=== PATIENT | female | born 1970 | race Caucasian/White ===

== ENCOUNTER 2020-11-30 02:26 | Outpatient (CLI) | payer OTHER, SELFPAY ==
[2020-11-30 18:38] LABS: SARS-CoV-2 RNA PCR Negative
== END 2020-11-30 02:27 | disposition home or self-care (01) ==
LOC: ANHCOVIDDT 02:26
PROVIDERS: PCP Family Medicine; Visit Provider Internal Medicine Gastroenterology
DX: Z01.812 Encounter for preprocedural laboratory examination (principal); Z20.822 Contact with and (suspected) exposure to COVID-19
CPT/HCPCS: C9803; U0003; U0005

== ENCOUNTER 2020-12-03 01:15 | Day surgery (SDC) | payer OTHER, SELFPAY ==
[2020-11-23 13:19] VITALS: BMI 29.4
[2020-12-03 09:28] VITALS: BP 116/71; PULSE 64; RESP 16; TEMP 36.6; O2SAT 100; BMI 29.8
[2020-12-03] MEDS: LACTATED RINGERS 1,000 ML 150 ML IV CONT (09:38)
--- NOTE | 2020-12-03 10:03 | WPDANESEPPF ---
Anes - Initial Pre Proc Eval Procedure: Operation Date: 12/03/20 10:45 Proposed Procedures p Esophagogastroduodenoscopy - Dk Steen MD Date/Time: 12/03/20 10:03 Surgeon: Dk Steen MD Pre Op Diagnosis: Dysphagia Patient Data Age: 50 Gender: F Height: 5 ft 2 in Weight: 74 kg Last Vital Signs Temp 97.8 F 12/03/20 09:28 Pulse 64 12/03/20 09:28 Resp 16 12/03/20 09:28 BP 116/71 12/03/20 09:28 Pulse Ox 100 12/03/20 09:28 Allergies Allergy/AdvReac Type Severity Reaction Status Date / Time No Known Allergies Allergy Verified 12/03/20 09:27 Home Medications Medication Instructions Recorded Confirmed Type pantoprazole 40 mg tablet,delayed 40 mg PO QAM #30 tablet 10/27/20 11/23/20 Rx release hydroxyzine HCl 25 mg PO DAILY 11/23/20 11/23/20 History sertraline 50 mg tablet 50 mg PO DAILY 11/23/20 11/23/20 History propranolol 20 mg tablet 20 mg PO TID #90 tablet 11/24/20 Rx Patient hx anesthesia problems: none Family hx anesthesia problems: none PMFSH Past Medical History Medical History Melanoma Overweight (BMI 25.0-29.9) Sciatica Social History Social History (Updated 11/23/20 @ 07:54 by Paulette Haney) Social History: single Smoking status: Never smoker Second hand tobacco smoke exposure: No Alcohol intake: current Drinks per week: 2 Substance use: never Substance use type: does not use Living arrangements: with family Additional living arrangements comments: Pt lives with her boyfriend Additional occupation/education comments: Disability Gender identity (if verbalized by the patient): Female Spiritual care concerns: No Anes - Eval Final PreProcedure Day of Procedure 12/03/20 10:03 Patient weight: overweight Heart: regular rate and rhythm Lungs: clear to auscultation Airway: Mallampati scale class II Neurological: alert and oriented Last oral intake: >/= 8 hours ASA classification: II Emergent: no Anesthetic plan: proceed Anesthesia type and monitoring: general GIVS and standard monitoring Informed Consent: The patient's anesthetic plan and its attendant risks and benefits were discussed with the patient/family/POA. Questions were solicited and answers provided to the satisfaction of the patient/family/POA.
--- NOTE | 2020-12-03 10:39 | WPDHPUPDATE1 ---
History and Physical Update Update Date/Time: 12/03/20 10:39 History and Physical has been reviewed, including an updated exam of the patient. There are NO changes in the patient's condition. Risks, benefits, and alternatives have been discussed and questions answered. Patient agrees to proceed with procedure.
[2020-12-03] MEDS: BENZOCAINE (*SP) 60 ML SPRAY CAN (HURRICAINE) 1 SPRAY MUCOUS MEM (10:43)
[2020-12-03 10:59] VITALS: BP 108/69; PULSE 66; RESP 18; O2SAT 100
[2020-12-03 11:09] VITALS: BP 112/64; PULSE 71; RESP 22; O2SAT 100
[2020-12-03 11:19] VITALS: BP 106/66; PULSE 66; RESP 20; O2SAT 100
== END 2020-12-03 11:35 | disposition home or self-care (01) ==
PROVIDERS: Family Provider Family Medicine; PCP Family Medicine; Visit Provider Internal Medicine Gastroenterology
PROC: 0DJ08ZZ Inspection of Upper Intestinal Tract, Via Natural or Artificial Opening Endoscopic (ICD-10-PCS; CPT 43235; principal; 2020-12-03 10:45)
DX: K22.2 Esophageal obstruction (principal); K44.9 Diaphragmatic hernia without obstruction or gangrene; K20.80 Other esophagitis without bleeding; Z85.820 Personal history of malignant melanoma of skin
CPT/HCPCS: 43239; 43249; 88305; C1726; C9803; J2704; J7120; U0003; U0005